=== PATIENT | female | born 1980 | race American Indian/Alaskan Native ===

== ENCOUNTER 2017-06-10 08:54 | Emergency (ER) | payer BC, MEDICAID ==
[2017-06-10 09:19] VITALS: BP 150/92
[2017-06-10 09:55] LABS: Basophils % (Auto) 0.3 % (0.0-1.8); Eosinophils % (Auto) 0.1 % (0.0-4.3); Hemoglobin 16.4 gm/dl (10.1-14.3); Lymphocytes # (Auto) 0.8 K/mm3 (1.2-5.4); Lymphocytes % (Auto) 10.6 % (13.4-35.0); Mean Corpuscular HGB Conc 33 % (30-34); Mean Corpuscular Hemoglobin 31 pg (28-32); Mean Corpuscular Volume 93 fl (79-97); Monocytes # (Auto) 0.5 K/mm3 (0.0-0.8); Monocytes % (Auto) 6.3 % (0.0-7.3); Platelet Count 311 K/mm3 (140-440); Red Blood Count 5.36 M/mm3 (3.65-5.03); Red Cell Distribution Width 13.8 % (13.2-15.2)
[2017-06-10 10:18] LABS: Alanine Aminotransferase 23 units/L (7-56); Albumin 4.9 g/dL (3.9-5); BUN/Creatinine Ratio 15; Blood Urea Nitrogen 12 mg/dL (7-17); Calcium 10.1 mg/dL (8.4-10.2); Hemolysis Index 8
[2017-06-10 11:00] LABS: Bacteria,Urine 1+ /HPF (Negative); Bilirubin,Urine NEG (Negative); Blood,Urine NEG (Negative); Color,Urine Amber (Yellow); Mucus,Urine 3+ /HPF; Nitrite,Urine NEG (Negative); Urobilinogen,Urine < 2.0 mg/dL (<2.0)
== END 2017-06-10 20:58 | disposition left against medical advice (07) ==
LOC: ED 08:54
DX: R10.9 Unspecified abdominal pain (principal); Z53.21 Procedure and treatment not carried out due to patient leaving prior to being seen by health care provider
CPT/HCPCS: 36415; 80053; 81001; 85025

== ENCOUNTER 2019-04-21 14:36 | Emergency (ER) | payer OTHER, MEDICAID ==
[2019-04-21 14:55] VITALS: BP 131/78
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
== END 2019-04-21 17:10 | disposition home or self-care (01) ==
LOC: ED 14:36
DX: S16.1XXA Strain of muscle, fascia and tendon at neck level, initial encounter (principal); I10 Essential (primary) hypertension; F32.9 Major depressive disorder, single episode, unspecified; F12.10 Cannabis abuse, uncomplicated; Z79.899 Other long term (current) drug therapy; Z90.49 Acquired absence of other specified parts of digestive tract; V43.62XA Car passenger injured in collision with other type car in traffic accident, initial encounter; Y93.89 Activity, other specified; Y92.410 Unspecified street and highway as the place of occurrence of the external cause; Y99.8 Other external cause status

== ENCOUNTER 2020-05-18 13:29 | Emergency (ER) | payer MEDICAID, OTHER ==
--- NOTE | 2020-05-18 14:23 | Emergency Department Report ---
ED Female HPI - General Chief complaint: Vaginal Bleeding Stated complaint: /ABD PAIN/BLEEDING Source: patient Mode of arrival: Ambulatory Limitations: No Limitations - History of Present Illness Initial comments: 39-year-old -[place] female presents to the emergency room with heavy vaginal bleeding and concerned that she is having a possible miscarriage. Amauri bermudez reports that her last menstrual period was 03/23/2020. Patient is 6 para 5. Patient reports that she is taken several home tests which are all positive. Patient reports she has not seen by her TICKET MANAGER provider. Patient states while she was at home on the toilet that a sac protruding into the toilet. Patient complains of heavy vaginal bleeding and pelvic cramping. MD Complaint: vaginal bleeding, pelvic pain -: This afternoon Location: suprapubic Severity: moderate Severity scale (0 -10): 6 Quality: cramping Consistency: constant Improves with: none Worsens with: none Are you Now?: Yes Last Menstrual Period: 03/23/20 EDC: 12/28/20 Associated Symptoms: vaginal bleeding, abdominal pain. denies: nausea/vomiting, fever/chills - Related Data Sexually active: Yes : 6 Para: 5 Home Medications Medication Instructions Recorded Confirmed Last Taken hydroCHLOROthiazide [Hctz] 12.5 mg PO QDAY 02/19/16 02/19/16 Unknown Previous Rx's Medication Instructions Recorded Last Taken Type Metoclopramide [Reglan TAB] 10 mg PO Q6H PRN #20 tab 03/20/16 Unknown Rx Pantoprazole [Protonix TAB] 20 mg PO QDAY #10 tablet. 03/20/16 Unknown Rx traMADoL [Ultram 50 MG tab] 50 mg PO Q6HR PRN #14 tablet 03/20/16 Unknown Rx Ibuprofen [Motrin 800 MG tab] 800 mg PO Q8HR PRN #21 tablet 04/21/19 Unknown Rx methOCARBAMOL [Robaxin TAB] 1,500 mg PO Q8H PRN #30 tablet 04/21/19 Unknown Rx Nitrofurantoin [place]/M-Cryst 100 mg PO Q12HR 7 Days #14 capsule 05/18/20 Unknown Rx [Macrobid CAP] Allergies Allergy/AdvReac Type Severity Reaction Status Date / Time No Known Allergies Allergy Unverified 02/19/16 08:40 ED Review of Systems ROS: Stated complaint: /ABD PAIN/BLEEDING Other details as noted in HPI Comment: All other systems reviewed and negative ED Past Medical Hx - Past Medical History Hx Hypertension: Yes Hx Psychiatric Treatment: Yes (depression) Additional medical history: fibroids, H. pylori, Abd pain - Surgical History Hx Cholecystectomy: Yes - Social History Smoking Status: Never Smoker Substance Use Type: Marijuana - Medications Home Medications: Home Medications Medication Instructions Recorded Confirmed Last Taken Type hydroCHLOROthiazide [Hctz] 12.5 mg PO QDAY 02/19/16 02/19/16 Unknown History Metoclopramide [Reglan TAB] 10 mg PO Q6H PRN #20 tab 03/20/16 Unknown Rx Pantoprazole [Protonix TAB] 20 mg PO QDAY #10 tablet.dr 03/20/16 Unknown Rx traMADoL [Ultram 50 MG tab] 50 mg PO Q6HR PRN #14 tablet 03/20/16 Unknown Rx Ibuprofen [Motrin 800 MG tab] 800 mg PO Q8HR PRN #21 tablet 04/21/19 Unknown Rx methOCARBAMOL [Robaxin TAB] 1,500 mg PO Q8H PRN #30 tablet 04/21/19 Unknown Rx Nitrofurantoin [place]/M-Cryst 100 mg PO Q12HR 7 Days #14 capsule 05/18/20 Unknown Rx [Macrobid CAP] ED Physical Exam - General Limitations: No Limitations General appearance: alert, in no apparent distress - Head Head exam: Present: atraumatic, normocephalic - Eye Eye exam: Present: normal appearance - ENT ENT exam: Present: mucous membranes moist - Neck Neck exam: Present: normal inspection - Respiratory Respiratory exam: Present: normal lung sounds bilaterally. Absent: respiratory distress ED Medical Decision Making - Lab Data Result diagrams: 05/18/20 14:20 05/18/20 14:20 - Radiology Data Radiology results: report reviewed of :[id number]:FemaleAccession:[id number] Date:[id number] Status:Finalized Findings [facility] [address] [place] [address] Ultrasound Report Signed Patient: DYLAN RAMIREZ MR#: [id number] : 1980 Acct:[id number] Age/Sex: 39 / F ADM Date: 05/18/20 Loc: ED Attending Dr: Ordering Physician: AMAURI HAMPTON Date of Service: 05/18/20 Procedure(s): US OB transvaginal Accession Number(s): [id number] cc: AMAURI HAMPTON TRANSABDOMINAL AND TRANSVAGINAL OB PELVIC ULTRASOUND INDICATION / CLINICAL INFORMATION: Vaginal bleeding. COMPARISON: None available. FINDINGS: TRANSABDOMINAL: The uterus measures 12.0 x 4.2 x 7.5 cm. The endometrial stripe measures 7 mm AP and the endometrial cavity is empty. The right ovary measures 3.7 x 1.6 x 3.0 cm and the left ovary 2.6 x 1.1 x 1.2 cm. There is no evidence of adnexal mass or free fluid. TRANSVAGINAL: The endometrial stripe measures 1.2 cm AP. There is no evidence of an intrauterine gestational sac. There is a 2.6 cm fibroid in the uterine body on the right. There is normal blood flow to both ovaries on Doppler exam. There is a small amount of free fluid in the cul-de-sac. I see no evidence of an extraovarian mass or other abnormality. IMPRESSION: 1. No evidence of intrauterine or extrauterine . 2. 2.6 cm fibroid in the right uterine body. Signer Name: Dennis Moses MD Signed: 05/18/2020 6:25 PM Workstation Name: [id number] Transcribed By: RT Dictated By: Dennis Moses MD Electronically Authenticated By: Dennis Moses MD Signed Date/Time: 05/18/201824 DD/ 19 TD/TT: Critical care attestation.: If time is entered above; I have spent that time in minutes in the direct care of this critically ill patient, excluding procedure time. ED Disposition Clinical Impression: Complete miscarriage, UTI (urinary tract infection) Disposition: DC-01 TO HOME OR SELFCARE Is pt being admited?: No Does the pt Need Aspirin: No Condition: Stable Instructions: Miscarriage, Petn-jr-Vajg Additional Instructions: Recommend for you to follow-up with an TICKET MANAGER in 72 hours to have a repeat hCG. Your ultrasound shows no . You most likely has had a miscarriage. Prescriptions: Nitrofurantoin [place]/M-Cryst [Macrobid CAP] 100 mg PO Q12HR 7 Days #14 capsule Referrals: PRIMARY CARE, [Primary Care Provider] - 3-5 Days [facility] [Provider Group] - 3-5 Days Forms: Work/School Release Form(ED)
[2020-05-18 14:45] LABS: Basophils % (Auto) 0.5 % (0.0-1.8); Eosinophils # (Auto) 0.2 K/mm3 (0.0-0.4); Hematocrit 45.5 % (30.3-42.9); Hemoglobin 14.7 gm/dl (10.1-14.3); Lymphocytes # (Auto) 1.4 K/mm3 (1.2-5.4); Lymphocytes % (Auto) 22.9 % (13.4-35.0); Mean Corpuscular HGB Conc 32 % (30-34); Mean Corpuscular Volume 92 fl (79-97); Monocytes # (Auto) 0.5 K/mm3 (0.0-0.8); Monocytes % (Auto) 8.9 % (0.0-7.3); Platelet Count 335 K/mm3 (140-440); Red Blood Count 4.93 M/mm3 (3.65-5.03); Red Cell Distribution Width 14.2 % (13.2-15.2)
[2020-05-18 14:53] LABS: Alanine Aminotransferase 14 units/L (7-56); Albumin 4.2 g/dL (3.9-5); Blood Urea Nitrogen 6 mg/dL (7-17); Calcium 9.3 mg/dL (8.4-10.2); Hemolysis Index 4
[2020-05-18 14:56] LABS: BUN/Creatinine Ratio 9
[2020-05-18] MEDS ORDERED: ACETAMINOPHEN 325 MG TAB PO ONE (18:04)
--- NOTE | 2020-05-18 18:29 | Ultrasound Report ---
TRANSABDOMINAL AND TRANSVAGINAL OB PELVIC ULTRASOUND INDICATION / CLINICAL INFORMATION: Vaginal bleeding. COMPARISON: None available. FINDINGS: TRANSABDOMINAL: The uterus measures 12.0 x 4.2 x 7.5 cm. The endometrial stripe measures 7 mm AP and the endometrial cavity is empty. The right ovary measures 3.7 x 1.6 x 3.0 cm and the left ovary 2.6 x 1.1 x 1.2 cm. There is no evidence of adnexal mass or free fluid. TRANSVAGINAL: The endometrial stripe measures 1.2 cm AP. There is no evidence of an intrauterine gest ational sac. There is a 2.6 cm fibroid in the uterine body on the right. There is normal blood flow t o both ovaries on Doppler exam. There is a small amount of free fluid in the cul-de-sac. I see no david dence of an extraovarian mass or other abnormality. IMPRESSION: 1. No evidence of intrauterine or extrauterine . 2. 2.6 cm fibroid in the right uterine body. Signer Name: Dennis Moses MD Signed: 05/18/2020 6:25 PM Workstation Name: [id number]
[2020-05-18 20:48] LABS: Bilirubin,Urine NEG (Negative); Blood,Urine LG (Negative); Color,Urine Yellow (Yellow); Mucus,Urine 1+ /HPF; Protein,Urine <15 mg/dL mg/dL (Negative); Urobilinogen,Urine < 2.0 mg/dL (<2.0)
[2020-05-18 21:11] VITALS: BP 144/80
== END 2020-05-18 21:11 | disposition home or self-care (01) ==
LOC: ED 13:29
DX: O03.9 Complete or unspecified spontaneous abortion without complication (principal); O23.41 Unspecified infection of urinary tract in pregnancy, first trimester; I10 Essential (primary) hypertension; F32.9 Major depressive disorder, single episode, unspecified; F12.10 Cannabis abuse, uncomplicated; Z3A.00 Weeks of gestation of pregnancy not specified; Z90.49 Acquired absence of other specified parts of digestive tract; Z79.1 Long term (current) use of non-steroidal anti-inflammatories (NSAID); Z79.899 Other long term (current) drug therapy
CPT/HCPCS: 36415; 76801; 76817; 80053; 81001; 84702; 85025; 87086

== ENCOUNTER 2020-06-13 08:38 | Emergency (ER) | payer MEDICAID ==
[2020-06-13] MEDS ORDERED: ONDANSETRON 4 MG/2 ML INJ IV ONE (11:30)
[2020-06-13] MEDS ORDERED: LACTATED RINGERS 1,000 ML IV ONE (11:30)
[2020-06-13] MEDS ORDERED: MORPHINE 4 MG/1 ML INJ IV ONE (11:30)
[2020-06-13] MEDS ORDERED: METOCLOPRAMIDE 10 MG/2 ML INJ IV ONE (11:41)
[2020-06-13] MEDS ORDERED: diphenhydrAMINE 50 MG/ML VIAL IV ONE (11:41)
--- NOTE | 2020-06-13 11:45 | Emergency Department Report ---
ED General Adult HPI - General Chief complaint: Abdominal Pain Stated complaint: VOMITTING/CRAMPS Time Seen by Provider: 06/13/20 11:30 Source: patient Mode of arrival: Wheelchair Limitations: No Limitations - History of Present Illness Initial comments: 39-year-old female presenting with chief complaint of right-sided pelvic pain, gradual onset over the past day or 2 associate with nausea and vomiting. She is , approximately 9 weeks but denies any vaginal bleeding or discharge. Denies any diarrhea, constipation, dysuria, fevers or any other complaints. Symptoms are moderate in nature, pain is nonradiating, no alleviating or exacerbating factors. - Related Data Home Medications Medication Instructions Recorded Confirmed Last Taken hydroCHLOROthiazide [Hctz] 12.5 mg PO QDAY 02/19/16 02/19/16 Unknown Previous Rx's Medication Instructions Recorded Last Taken Type Metoclopramide [Reglan TAB] 10 mg PO Q6H PRN #20 tab 03/20/16 Unknown Rx Pantoprazole [Protonix TAB] 20 mg PO QDAY #10 tablet.dr 03/20/16 Unknown Rx traMADoL [Ultram 50 MG tab] 50 mg PO Q6HR PRN #14 tablet 03/20/16 Unknown Rx Ibuprofen [Motrin 800 MG tab] 800 mg PO Q8HR PRN #21 tablet 04/21/19 Unknown Rx methOCARBAMOL [Robaxin TAB] 1,500 mg PO Q8H PRN #30 tablet 04/21/19 Unknown Rx Nitrofurantoin [place]/M-Cryst 100 mg PO Q12HR 7 Days #14 capsule 05/18/20 Unknown Rx [Macrobid CAP] Naproxen [Naprosyn] 500 mg PO BID #20 tablet 06/13/20 Unknown Rx Phenazopyridine [Pyridium] 200 mg PO TID #6 tab 06/13/20 Unknown Rx Promethazine [Phenergan] 25 mg PO Q6HR PRN #12 tab 06/13/20 Unknown Rx Allergies Allergy/AdvReac Type Severity Reaction Status Date / Time No Known Allergies Allergy Verified 06/13/20 08:47 ED Review of Systems ROS: Stated complaint: VOMITTING/CRAMPS Other details as noted in HPI Comment: All other systems reviewed and negative Gastrointestinal: as per HPI ED Past Medical Hx - Past Medical History Hx Hypertension: Yes Hx Psychiatric Treatment: Yes (depression) Additional medical history: fibroids, H. pylori, Abd pain - Surgical History Hx Cholecystectomy: Yes - Social History Smoking Status: Never Smoker Substance Use Type: Marijuana - Medications Home Medications: Home Medications Medication Instructions Recorded Confirmed Last Taken Type hydroCHLOROthiazide [Hctz] 12.5 mg PO QDAY 02/19/16 02/19/16 Unknown History Metoclopramide [Reglan TAB] 10 mg PO Q6H PRN #20 tab 03/20/16 Unknown Rx Pantoprazole [Protonix TAB] 20 mg PO QDAY #10 tablet.dr 03/20/16 Unknown Rx traMADoL [Ultram 50 MG tab] 50 mg PO Q6HR PRN #14 tablet 03/20/16 Unknown Rx Ibuprofen [Motrin 800 MG tab] 800 mg PO Q8HR PRN #21 tablet 04/21/19 Unknown Rx methOCARBAMOL [Robaxin TAB] 1,500 mg PO Q8H PRN #30 tablet 04/21/19 Unknown Rx Nitrofurantoin [place]/M-Cryst 100 mg PO Q12HR 7 Days #14 capsule 05/18/20 Unknown Rx [Macrobid CAP] Naproxen [Naprosyn] 500 mg PO BID #20 tablet 06/13/20 Unknown Rx Phenazopyridine [Pyridium] 200 mg PO TID #6 tab 06/13/20 Unknown Rx Promethazine [Phenergan] 25 mg PO Q6HR PRN #12 tab 06/13/20 Unknown Rx ED Physical Exam - General Limitations: No Limitations General appearance: alert, in no apparent distress - Head Head exam: Present: atraumatic, normocephalic - Eye Eye exam: Present: normal appearance - ENT ENT exam: Present: mucous membranes moist - Neck Neck exam: Present: normal inspection - Respiratory Respiratory exam: Present: normal lung sounds bilaterally. Absent: respiratory distress - Cardiovascular Cardiovascular Exam: Present: regular rate, normal rhythm. Absent: systolic murmur, diastolic murmur, rubs, gallop - GI/Abdominal GI/Abdominal exam: Present: soft, tenderness (Minimal right pelvic tenderness, no focal right lower quadrant pain or tenderness), normal bowel sounds. Absent: distended, guarding, rebound - Extremities Exam Extremities exam: Present: normal inspection - Back Exam Back exam: Present: normal inspection - Neurological Exam Neurological exam: Present: alert, oriented X3 - Psychiatric Psychiatric exam: Present: normal affect, normal mood - Skin Skin exam: Present: warm, dry, intact, normal color. Absent: rash ED Course Vital Signs 06/13/20 08:51 Temperature 97.8 F Pulse Rate 70 Respiratory 18 Rate Blood Pressure 159/90 O2 Sat by Pulse 98 Oximetry ED Medical Decision Making - Lab Data Result diagrams: 06/13/20 11:40 06/13/20 11:40 - Radiology Data Radiology results: report reviewed Complex right adnexal cyst - Medical Decision Making Patient 9 weeks gestation with right-sided pelvic pain for the past couple days without bleeding. Does report vomiting. Exam is overall benign with minimal r ight-sided pelvic tenderness. Low suspicion for acute surgical process within the abdomen. We will check labs and ultrasound give IV fluids Reglan and Benadryl. hCG has increased from 7000-80. Ultrasound shows a complex right-sided adnexal cyst, consider ectopic . Clinically I do not feel that this is consistent with an ectopic given her likely spontaneous miscarriage and rapidly decreasing hCG levels. I did discuss this with on-call [facility], Dr. Saint Heard who agrees and states that she feels the patient is stable for outpatient follow-up. We will give prescription for pain medication and nausea medication as well as treat dysuria and refer to [facility]. Return precautions given. - Differential Diagnosis Threatened miscarriage, ovarian cyst, appendicitis less likely Critical care attestation.: If time is entered above; I have spent that time in minutes in the direct care of this critically ill patient, excluding procedure time. ED Disposition Clinical Impression: Right ovarian cyst Disposition: - TO HOME OR SELFCARE Is pt being admited?: No Condition: Good Instructions: Abdominal Pain (ED), Ovarian Cyst Prescriptions: Naproxen [Naprosyn] 500 mg PO BID #20 tablet Promethazine [Phenergan] 25 mg PO Q6HR PRN #12 tab PRN Reason: Nausea Phenazopyridine [Pyridium] 200 mg PO TID #6 tab Referrals: PRIMARY CARE, [Primary Care Provider] - 3-5 Days RAMIREZ HANNON MD [Staff Physician] - 3-5 Days Time of Disposition: 14:46
[2020-06-13 12:23] LABS: Hemoglobin 14.3 gm/dl (10.1-14.3); Mean Corpuscular HGB Conc 33 % (30-34); Mean Corpuscular Volume 93 fl (79-97); Platelet Count 325 K/mm3 (140-440); Red Blood Count 4.65 M/mm3 (3.65-5.03)
[2020-06-13 12:52] LABS: Alanine Aminotransferase 13 units/L (7-56); Albumin 4.3 g/dL (3.9-5); Blood Urea Nitrogen 7 mg/dL (7-17); Calcium 9.4 mg/dL (8.4-10.2); Hemolysis Index 15
[2020-06-13 12:53] LABS: BUN/Creatinine Ratio 10
--- NOTE | 2020-06-13 13:16 | Ultrasound Report ---
FIRSTTRIMESTER OBSTETRIC ULTRASOUND ULTRASOUND OB TRANSVAGINAL HISTORY: Right pelvic pain, 2 days with vomiting COMPARISON: 05/18/2020 TECHNIQUE: Routine transabdominal and transvaginal OB ultrasound performed. FINDINGS: Uterus: The uterus is mildly enlarged and retroflexed measuring 11.5 x 5.0 x 5.9 cm. An approximate 2 cm ill-defined fibroid is identified in the anterior wall. Gestational Sac: No intrauterine gestational sac is detected. The endometrium measures 9.2 mm in thic kness. Yolk Sac: Not seen Fetus/Embryo: Not seen Embryonic/ cardiac activity: Not seen Ovaries: The right ovary measures 3.4 x 2.1 x 1.6 cm. A 1.9 x 1.2 cm simple right ovarian cyst is conchita ntified. There is also a complex partially cystic masslike lesion in the right adnexa measuring up to 3 cm in diameter. A small cystic area within measures an average of 14 mm. There is no obvious pole, yolk sac or cardiac activity identified in this structure. The left ovary measures 2.9 x 1.8 x 2.0 cm and contains a 1.8 cm simple cyst. Additional findings: None. IMPRESSION No intrauterine is visualized. There is a complex partially cystic masslike lesion in the right adnexa which is concerning for an ec topic . No discrete pole or heart rate could be demonstrated in this structure. Please correlate with the patient's clinical presentation. Bilateral simple ovarian cyst. Uterine fibroid. Signer Name: Mike Contreras Jr, MD Signed: 06/13/2020 1:11 PM Workstation Name: [id number]
[2020-06-13 13:30] LABS: Total Cells Counted 100
[2020-06-13 13:32] LABS: Platelet Estimate Consistent w Auto; RBC Morphology Normal
[2020-06-13 13:38] LABS: Bilirubin,Urine NEG (Negative); Blood,Urine NEG (Negative); Color,Urine Straw (Yellow); Mucus,Urine FEW /HPF; Protein,Urine <15 mg/dL mg/dL (Negative); RBC,Urine < 1.0 /HPF (0.0-6.0); Urobilinogen,Urine < 2.0 mg/dL (<2.0)
[2020-06-13 13:43] LABS: WBC,Urine < 1.0 /HPF (0.0-6.0)
[2020-06-13 15:00] VITALS: BP 143/78
== END 2020-06-13 15:00 | disposition home or self-care (01) ==
LOC: ED 08:38
DX: O34.81 Maternal care for other abnormalities of pelvic organs, first trimester (principal); N83.201 Unspecified ovarian cyst, right side; I10 Essential (primary) hypertension; F32.9 Major depressive disorder, single episode, unspecified; Z3A.09 9 weeks gestation of pregnancy; Z90.49 Acquired absence of other specified parts of digestive tract; F12.10 Cannabis abuse, uncomplicated; Z79.1 Long term (current) use of non-steroidal anti-inflammatories (NSAID); Z79.899 Other long term (current) drug therapy
CPT/HCPCS: 36415; 76801; 76817; 80053; 81001; 83690; 84702; 85007; 85025; 96361; 96374; 96375; 99284; J1200; J2765; J7120